=== PATIENT | male | born 1965 | race Caucasian/White ===

== ENCOUNTER 2019-07-07 17:06 | Emergency (ER) | payer OTHER ==
[~2019-07-07] VITALS: Ht 190.5 cm; Wt 104.3 kg
--- NOTE | 2019-07-07 17:32 | PHYS DOC ---
Adult General Chief Complaint Chief Complaint: UPPER EXTREMITY PAIN HPI HPI Patient is a 53 year old male who presents to the ED today concerned he could have a DVT on the left upper extremity, patient states he had a CT with IV contrast and the left AC was the IV site, he states is concerned he could have a blood clot because he has some slight pain to the before meals joint. Denies any swelling, denies any redness, denies any fever. 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 (TAMIR PEPPER APRN) Review of Systems Review of Systems Constitutional: Denies fever or chills [] Eyes: Denies change in visual acuity, redness, or eye pain [] HENT: Denies nasal congestion or sore throat [] Respiratory: Denies cough or shortness of breath [] Cardiovascular: No additional information not addressed in HPI [] GI: Denies abdominal pain, nausea, vomiting, bloody stools or diarrhea [] : Denies dysuria or hematuria [] Musculoskeletal: Reports left Ac joint pain, Integument: Denies rash or skin lesions [] Neurologic: Denies headache, focal weakness or sensory changes [] Endocrine: Denies polyuria or polydipsia [] All other systems were reviewed and found to be within normal limits, except as documented in this note. (TAMIR PEPPER APRN) Current Medications Current Medications Current Medications Medications (Trade) Dose Ordered Sig/Son Start Time Stop Time Status Last Admin Dose Admin Rivaroxaban (Xarelto) 15 mg 1X STAT 07/07/19 19:59 07/07/19 20:00 DC 07/07/19 20:18 15 MG (JOSSELYN ALONZO MD) Allergies Allergies Allergies Coded Allergies Type Severity Reaction Last Updated Verified No Known Drug Allergies 07/07/19 No (JOSSELYN ALONZO MD) Physical Exam Physical Exam Constitutional: Well developed, well nourished, no acute distress, non-toxic appearance. [] HENT: Normocephalic, atraumatic, bilateral external ears normal, oropharynx moist, no oral exudates, nose normal. [] Eyes: PERRLA, EOMI, conjunctiva normal, no discharge. [] Neck: Normal range of motion, no tenderness, supple, no stridor. [] Cardiovascular:Heart rate regular rhythm, no murmur [] Lungs & Thorax: Bilateral breath sounds clear to auscultation [] Abdomen: Bowel sounds normal, soft, no tenderness, no masses, no pulsatile masses. [] Skin: Warm, dry, left before meals noted for tiny puncture wound consistent with recent needlestick, there is no redness or erythema to the left upper e xtremity, full range of motion to the left upper extremity. +2 left radial pulse. Cap refill less than 2 seconds the left fingers. Back: No tenderness, no CVA tenderness. [] Extremities: No tenderness, no cyanosis, no clubbing, ROM intact, no edema. [] Neurologic: Alert and oriented X 3, normal motor function, normal sensory function, no focal deficits noted. [] Psychologic: Affect normal, judgement normal, mood normal. [] (TAMIR PEPPER APRN) Current Patient Data Vital Signs Vital Signs Date Time Temp Pulse Resp B/P (MAP) Pulse Ox O2 Delivery O2 Flow Rate FiO2 07/07/19 20:10 105 16 186/105 (132) 99 Room Air 07/07/19 17:20 98.4 98.4 (JOSSELYN ALONZO MD) EKG EKG [] (TAMIR PEPPER APRN) Radiology/Procedures Radiology/Procedures []PROCEDURE: VENOUS UPPER EXTREMITY LEFT Left upper extremity venous duplex study 07/07/2019 CLINICAL HISTORY: History of recent IV. Lump in the left antecubital fossa for 2 days. TECHNIQUE: Using a combination of real-time ultrasound imaging and color-flow and pulse Doppler imaging techniques along with graded compression and augmentation, duplex evaluation of the major venous structures of the left upper extremity to include the left subclavian and left internal jugular veins was performed. Multiple images were obtained. FINDINGS: Echogenic thrombus is seen involving the left cephalic vein extending from the region of the left antecubital fossa, superiorly to the left upper arm. The left radial, ulnar, brachial, basilic, axillary, left internal jugular and left subclavian veins are patent. IMPRESSION: Thrombosis of a portion of the left cephalic vein is seen as discussed above. Electronically signed by: Gabe Leos MD (07/07/2019 7:01 PM) [id number] DICTATED and SIGNED BY: GABE LEOS MD DATE: 07/07/191900 (TAMIR PEPPER APRN) Course & Med Decision Making Course & Med Decision Making Pertinent Labs and Imaging studies reviewed. (See chart for details) This is a 53-year-old male patient who presents to the ED today concerned he could have a blood clot on the left upper extremity after having a CT with IV contrast done 10 days ago, the use the left upper extremity for the IV site. The IV site has no redness, no swelling, no signs of infection. Left upper extremity venous Doppler was noted for thrombosis of a portion of the left cephalic vein-consulted with , patient was started on Xaletro. Patient was discharged to home. Follow-up with primary care doctor next week. (TAMIR PEPPER APRN) Course & Med Decision Making Staff Physician Addendum: I was working in the ER during the course of this patient's visit. I was available for consultation as needed, but I was not directly involved in the care of this patient. (JOSSELYN ALONZO MD) Dragon Disclaimer Dragon Disclaimer This electronic medical record was generated, in whole or in part, using a voice recognition dictation system. (TAMIR PEPPER APRN) Departure Departure Impression: Primary Impression: Cephalic vein thrombosis, left Disposition: 01 HOME, SELF-CARE Condition: STABLE Referrals: ALEENA ENNIS MD (PCP) Follow-up next week Patient Instructions: Deep Vein Thrombosis Additional Instructions: You were evaluated in the emergency room left cephalic vein thrombosis, we put you on an anticoagulant take it as prescribed. Please follow-up with the provided silk screen printing racker or your own doctor next week. Try to elevate the affected extremity, apply heat to the affected area. Scripts Rivaroxaban (XARELTO) 15 Mg Tablet 15 MG PO BID, #42 TAB Prov: TAMIR PEPPER APRN 07/07/19 TAMIR PEPPER APRN Jul 07, 2019 17:32 JOSSELYN ALONZO MD Jul 10, 2019 21:49
--- NOTE | 2019-07-07 19:04 | RAD ---
Left upper extremity venous duplex study 07/07/2019 CLINICAL HISTORY: History of recent IV. Lump in the left antecubital fossa for 2 days. TECHNIQUE: Using a combination of real-time ultrasound imaging and color-flow and pulse Doppler imaging techniques along with graded compression and augmentation, duplex evaluation of the major venous structures of the left upper extremity to include the left subclavian and left internal jugular veins was performed. Multiple images were obtained. FINDINGS: Echogenic thrombus is seen involving the left cephalic vein extending from the region of the left antecubital fossa, superiorly to the left upper arm. The left radial, ulnar, brachial, basilic, axillary, left internal jugular and left subclavian veins are patent. IMPRESSION: Thrombosis of a portion of the left cephalic vein is seen as discussed above. Electronically signed by: Gabe Leos MD (07/07/2019 7:01 PM) [facility]
[2019-07-07] MEDS ORDERED: RIVA15TA PO (19:45)
[2019-07-07] MEDS ORDERED: RIVAROXABAN 15 MG TABLET. PO STA (19:59)
[2019-07-07 20:10] VITALS: BP 186/105
== END 2019-07-07 20:12 | disposition home or self-care (01) ==
LOC: ER 17:06
DX: I82.612 Acute embolism and thrombosis of superficial veins of left upper extremity (principal)
CPT/HCPCS: 93971; 99284

== ENCOUNTER → 2019-12-07 | Outpatient (CLI) | payer OTHER ==
[~2019-12-07] MED LIST: RIVA15TA PO
--- NOTE | 2019-12-07 08:19 | EKG ---
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
[2019-12-07 09:33] LABS: BASO % 1 % (0-3); EOS # 0.2 x10^3/uL (0.0-0.7); EOS % 3 % (0-3); HEMATOCRIT 45.1 % (39.0-53.0); HEMOGLOBIN 15.4 g/dL (13.0-17.5); LYMPH # 1.4 x10^3/uL (1.0-4.8); LYMPH % 18 % (24-48); MEAN CORPUSCULAR HEMOGLOBIN 29 pg (25-35); MEAN CORPUSCULAR HGB CONC 34 g/dL (31-37); MEAN CORPUSCULAR VOLUME 86 fL (79-100); MONO # 0.6 x10^3/uL (0.0-1.1); MONO % 8 % (0-9); NEUT # 5.3 x10^3/uL (1.8-7.7); NEUT % 71 % (31-73); PLATELET COUNT 218 x10^3/uL (140-400); RED BLOOD COUNT 5.26 x10^6/uL (4.30-5.70); RED CELL DISTRIBUTION WIDTH 13.9 % (11.5-14.5); WHITE BLOOD COUNT 7.5 x10^3/uL (4.0-11.0)
[2019-12-07 09:42] LABS: PROTHROMBIN TIME PATIENT 12.9 SEC (11.7-14.0)
--- NOTE | 2019-12-07 09:57 | RAD ---
AP and Lateral Views of the Chest 12/07/2019 12:00 AM Indication: Preoperative Comparison: None Findings: There is no focal consolidation or infiltrate identified. The cardiomediastinal silhouette is within normal limits. There is no evidence of pneumothorax or pleural effusion. No acute osseous abnormalities are identified. Impression: No evidence of acute cardiopulmonary process. Electronically signed by: Ryder Claudio MD (12/07/2019 9:55 AM) [facility]
[2019-12-07 09:58] LABS: ALBUMIN 4.1 g/dL (3.4-5.0); ALBUMIN/GLOBULIN RATIO 1.4 (1.0-1.7); CALCIUM 8.8 mg/dL (8.5-10.1); CREATININE 1.3 mg/dL (0.7-1.3); GFR 57.5; POTASSIUM 3.6 mmol/L (3.5-5.1); TOTAL BILIRUBIN 0.4 mg/dL (0.2-1.0); TOTAL PROTEIN 7.1 g/dL (6.4-8.2)
== END | disposition home or self-care (01) ==
LOC: LAB 08:00
PROVIDERS: ATTEND Orthopaedic Surgery Sports Medicine
DX: Z01.818 Encounter for other preprocedural examination (principal); M75.102 Unspecified rotator cuff tear or rupture of left shoulder, not specified as traumatic
CPT/HCPCS: 36415; 71046; 80053; 85025; 85610; 85651; 85730; 93005